=== PATIENT | male | born 1965 | race Caucasian/White ===

== ENCOUNTER 2016-07-18 03:08 | Emergency (ER) | payer BC ==
[2016-07-18] MEDS ORDERED: KETOROLAC 60 MG/2 ML VIAL IM STA (03:43)
[2016-07-18] MEDS ORDERED: DEXAMETHASONE 10 MG/ML VIAL PO STA (03:43)
[2016-07-18] MEDS ORDERED: DEXAMETHASONE 10 MG/ML VIAL ONE (03:48)
[2016-07-18] MEDS ORDERED: KETOROLAC 60 MG/2 ML VIAL ONE (03:49)
[2016-07-18] MEDS ORDERED: CHERRY SYRUP 10 ML UDC PO ONE (03:49)
[2016-07-18 04:34] VITALS: BP 122/80
--- NOTE | 2016-07-18 05:15 | ED Physician Documentation ---
PD HPI LOWER EXT INJURY - Stated complaint Stated Complaint: L KNEE PX - Chief complaint Chief Complaint: Ext Problem - History obtained from History obtained from: Patient - History of Present Illness PD HPI LOW EXT INJURY LOCATION: Left, Knee Where injury occurred: Home Timing - onset: How many weeks ago (6) Timing - details: Gradual onset, Still present Improved by: Rest Worsened by: Moving, Palpating Associated symptoms: Swelling. No: Numbness, Tingling Similar symptoms before: Has not had sx before Recently seen: Not recently seen - Additional information Additional information: Patient is a 51 year old male with no significant past medical history who is presenting to the emergency department for right knee pain. patient states that it has been going on for 5 weeks. it recently has been keeping him up at night so he came in for evaluation. Patient denies any trauma, discoloration or shortness of breath. Review of Systems Constitutional: denies: Fever, Chills Eyes: denies: Decreased vision Ears: denies: Ear pain, Drainage/discharge Nose: denies: Rhinorrhea / runny nose, Congestion Throat: denies: Dental pain / toothache, Oral lesions / sores, Sore throat Cardiac: denies: Chest pain / pressure, Pedal edema, Calf pain Respiratory: denies: Dyspnea, Cough GI: denies: Abdominal Pain, Nausea, Vomiting : denies: Dysuria, Frequency Skin: denies: Rash, Lesions Musculoskeletal: reports: Extremity pain, Joint pain, Extremity swelling, Joint swelling Neurologic: denies: Generalized weakness, Focal weakness, Numbness Immunocompromised: denies: Immunocompromised PD PAST MEDICAL HISTORY - Past Medical History Past Medical History: Yes Cardiovascular: Hypertension Respiratory: None Neuro: None Endocrine/Autoimmune: None GI: None : None HEENT: None Psych: ADD/ADHD Musculoskeletal: Chronic back pain Derm: None - Past Surgical History Past Surgical History: Yes Ortho: Other - Present Medications Home Medications: Ambulatory Orders Medication Instructions Recorded Confirmed Dextroamphetamine/Amphetamine 15 mg ORAL DAILY 12/12/13 07/18/16 [Adderall 15 mg Tablet] Tizanidine HCl [Zanaflex] 2 mg ORAL PRN PRN 12/12/13 07/18/16 HYDROcod/ACETAM 5/325 [[place] 5/325] 1 - 2 ea PO Q6H PRN #15 tablet 10/08/1509/26 Lisinopril/Hydrochlorothiazide 1 tab ORAL DAILY PM 10/08/15 07/18/16 [Lisinopril-Hctz 10-12.5 mg Tab] - Allergies Allergies/Adverse Reactions: Allergies Allergy/AdvReac Type Severity Reaction Status Date / Time Opioids - Morphine Analogues AdvReac Itching Verified 07/18/16 03:22 - Social History Does the pt smoke?: No Smoking Status: Never smoker Does the pt drink ETOH?: No Does the pt have substance abuse?: No - Immunizations Immunizations are current?: Yes - POLST Patient has POLST: No PD ED PE NORMAL - Vitals Vital signs reviewed: Yes - General General: Alert and oriented X 3, No acute distress, Well developed/nourished - HEENT HEENT: Atraumatic, PERRL, Pharynx benign - Neck Neck: Supple, no meningeal sign, No JVD - Cardiac Cardiac: RRR, No murmur - Respiratory Respiratory: No respiratory distress, Clear bilaterally - Abdomen Abdomen: Soft, Non tender, Non distended - Derm Derm: Normal color, Warm and dry, No rash - Neuro Neuro: Alert and oriented X 3, No motor deficit, No sensory deficit, Normal speech - Psych Psych: Normal mood, Normal affect PD ED PE EXPANDED - Extremities Extremities: Right knee (tenderness to palpation of medial right knee, no effusion, no warmth or erythema) Results - Vitals Vitals: Vital Signs - 24 hr 07/18/16 07/18/16 03:17 04:30 Temperature 36.2 C L Heart Rate 76 67 Respiratory 16 14 Rate Blood Pressure 117/78 122/80 O2 Saturation 99 98 Oxygen O2 Source Room air - Labs Labs: Laboratory Tests 07/18/16 04:29 D-Dimer < 200.0 L - Rads (name of study) left knee Radiology: Final report received (no acute fracture or dislocation, small effusion) PD MEDICAL DECISION MAKING - ED course Complexity details: reviewed old records, reviewed results, re-evaluated patient , considered differential, d/w patient ED course: Patient was seen and examined at bedside. patient was treated with toradol and decadron. d-dimer was collected. Patient had no unilateral swelling, edema, or history of clots. Patient was sent for imaging. When patient returned the results were reviewed. there was no acute fracture or dislocation and d-dimer was negative. Patient required no further inpatient work up and was stable for discharge with outpatient follow up. Departure - Departure Disposition: 01 Home, Self Care Clinical Impression: Left medial knee pain Condition: Good Instructions: Medial Collateral Ligament Probs Follow-Up: Jose Cao MD [Provider Admit Priv/Credential] - Within 1 week Comments: Your diagnostics today were within normal limits. there is no acute fracture or dislocation. the next step would be to follow up with your pmd or an orthopedist and possibly get an mri. In the meantime you can take motrin or tylenol as needed for pain, and you should ice your knee on a more regular basis. You can also do exercises to increase the strength in the leg muscles surrounding the knee. You can return to the emergency department at any time for new, worsening or uncontrollable symptoms.
--- NOTE | 2016-07-18 05:20 | XRAY Preliminary Report ---
Exam: XR Knee 3 View LT IMPRESSION: Small knee effusion without evident acute displaced fracture. [facility] SITE ID: [id number]
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
== END 2016-07-18 05:45 | disposition home or self-care (01) ==
LOC: ED 03:08
DX: M25.562 Pain in left knee (principal); I10 Essential (primary) hypertension
CPT/HCPCS: 36415; 73562; 85379; 96372; 99283; 99284; A9270

== ENCOUNTER 2017-02-04 09:48 | Emergency (ER) | payer MEDICARE, BC ==
[2017-02-04] MEDS ORDERED: KETOROLAC 60 MG/2 ML VIAL IM STA (10:30)
[2017-02-04] MEDS ORDERED: CYCLOBENZAPRINE 10 MG TABLET PO STA (10:31)
[2017-02-04 11:27] VITALS: BP 108/86
--- NOTE | 2017-02-04 11:51 | ED Physician Documentation ---
PD HPI BACK PAIN - Stated complaint Stated Complaint: BACK PX - Chief complaint Chief Complaint: Back Pain - History obtained from History obtained from: Patient, Family - History of Present Illness Timing - onset: How many days ago (3) Timing - details: Gradual onset, Still present Location: Lower, Right Quality: Pain, Spasm, Aching Worsened by: Movement, Twisting Similar symptoms before: Work up / diagnostics, Treatment Recently seen: Not recently seen - Additional information Additional information: Patient is a 51 year old male who is presenting to the emergency department for back pain. patient states that he has had back pain for a long time and it just got set off over the last couple of days. Patient reports that it normally gets better with massage but he has not had one done. Review of Systems Constitutional: denies: Fever, Chills Eyes: denies: Decreased vision Ears: denies: Ear pain, Drainage/discharge Nose: denies: Rhinorrhea / runny nose, Congestion Throat: reports: Reviewed and negative Cardiac: reports: Reviewed and negative Respiratory: reports: Reviewed and negative GI: reports: Reviewed and negative : denies: Dysuria, Frequency, Hematuria, Discharge Skin: denies: Rash, Lesions Musculoskeletal: reports: Back pain, Extremity pain Neurologic: denies: Generalized weakness, Focal weakness, Numbness Immunocompromised: denies: Immunocompromised PD PAST MEDICAL HISTORY - Past Medical History Past Medical History: Yes Cardiovascular: Hypertension Respiratory: None Neuro: None Endocrine/Autoimmune: None GI: None : None HEENT: None Psych: ADD/ADHD Musculoskeletal: Chronic back pain Derm: None - Past Surgical History Past Surgical History: Yes Ortho: Other - Present Medications Home Medications: Ambulatory Orders Medication Instructions Recorded Confirmed Dextroamphetamine/Amphetamine 15 mg ORAL DAILY 12/12/13 02/04/17 [Adderall 15 mg Tablet] Tizanidine HCl [Zanaflex] 2 mg ORAL PRN PRN 12/12/13 02/04/17 Lisinopril/Hydrochlorothiazide 1 tab ORAL DAILY PM 10/08/15 02/04/17 [Lisinopril-Hctz 10-12.5 mg Tab] Gabapentin 600 mg PO BID 02/04/17 02/04/17 Zolpidem Tartrate [Ambien Cr] 12.5 mg PO DAILY PM 02/04/17 02/04/17 diazePAM [Valium] 5 - 10 mg PO TID PRN #15 tablet 02/04/17 - Allergies Allergies/Adverse Reactions: Allergies Allergy/AdvReac Type Severity Reaction Status Date / Time Opioids - Morphine Analogues AdvReac Itching Verified 07/18/16 03:22 - Social History Does the pt smoke?: No Smoking Status: Never smoker Does the pt drink ETOH?: No Does the pt have substance abuse?: No - Immunizations Immunizations are current?: Yes - POLST Patient has POLST: No PD ED PE NORMAL - Vitals Vital signs reviewed: Yes - General General: Alert and oriented X 3, Well developed/nourished - HEENT HEENT: Atraumatic, PERRL, Pharynx benign - Neck Neck: Supple, no meningeal sign, No JVD - Cardiac Cardiac: RRR, No murmur - Respiratory Respiratory: No respiratory distress - Abdomen Abdomen: Soft, Non tender, Non distended - Derm Derm: Normal color, Warm and dry, No rash - Neuro Neuro: Alert and oriented X 3, No motor deficit, No sensory deficit, Normal speech - Psych Psych: Normal mood PD ED PE EXPANDED - General General: Alert, In Pain - Back Back: Soft tissue tenderness (soft tissue tenderness and hypertonicty of bilateral lumbar paraspinal muscles, worse on the right) Results - Vitals Vitals: Vital Signs - 24 hr 02/04/17 02/04/17 09:54 11:26 Temperature 36.6 C 36.8 C Heart Rate 67 54 L Respiratory 16 18 Rate Blood Pressure 160/96 H 108/86 H O2 Saturation 95 100 Oxygen O2 Source Room air PD MEDICAL DECISION MAKING - ED course Complexity details: reviewed old records, reviewed results, re-evaluated patient , considered differential, d/w patient ED course: Patient was seen and examined at bedside. osteopathic manipulation was performed on the patient's back. patient was treated with toradol and flexeril. A repeat course of manipulation was performed and patient had great response. Patient required no imaging or further work up at this time and was stable for discharge with outpatient follow up. Departure - Departure Disposition: 01 Home, Self Care Clinical Impression: Back pain Condition: Good Instructions: ED Chronic Pain Management Follow-Up: primary,care provider [Other] - As Needed Prescriptions: diazePAM [Valium] 5 - 10 mg PO TID PRN #15 tablet PRN Reason: Spasms Comments: Your symptoms today are being caused by muscle spasms. You should continue with motrin, tylenol heat pads, stretching valium and massage. You should follow up with your doctor for further evaluation, but may return to the emergency department at any time for new, worsening or uncontrollable symptoms. Discharge Date/Time: 02/04/17 12:04
== END 2017-02-04 12:04 | disposition home or self-care (01) ==
LOC: ED 09:48
DX: M54.5 Low back pain (principal); I10 Essential (primary) hypertension; M62.830 Muscle spasm of back
CPT/HCPCS: 96372; 99283; 99284; A9270

== ENCOUNTER 2018-10-24 10:09 | Emergency (ER) | payer BC, MEDICARE ==
--- NOTE | 2018-10-24 10:13 | ED Physician Documentation ---
PD HPI BACK PAIN - Stated complaint Stated Complaint: BACK PX - History obtained from History obtained from: Patient - History of Present Illness Timing - onset: How many days ago (2-3) Timing - details: Abrupt onset (He was laying on the ground working on something upside down and noted an onset of pain in his back as he started to twist out from underneath. He has been having pain in his lower back with spasms since then and those are worse today.) Location: Lower, Right Quality: Pain, Spasm Associated symptoms: Other (He feels pain radiating down the right leg to the inside arch of the foot but denies any weakness or numbness. He has not had any bowel or bladder discomfort.). No: Fever, Weakness, Numbness Improves with: No: Rest Worsened by: Movement, Twisting Contributing factors: Twisting. No: Lifting, Anticoagulated Similar symptoms before: Diagnosis (He has intermittent spasms of his low back similar to this. The last episode was a year and a half ago and lasted about a week and a half. He was able to have normal function of his back in the interval time. No chronic back pain.) Recently seen: Not recently seen Review of Systems Constitutional: denies: Fever, Chills, Myalgias Cardiac: denies: Chest pain / pressure, Palpitations, Pedal edema, Calf pain Respiratory: denies: Dyspnea, Cough GI: denies: Abdominal Pain, Nausea, Vomiting Skin: denies: Rash, Lesions Neurologic: denies: Focal weakness, Numbness, Near syncope PD PAST MEDICAL HISTORY - Past Medical History Cardiovascular: Hypertension Respiratory: None Endocrine/Autoimmune: None GI: None : None HEENT: None Psych: ADD/ADHD Musculoskeletal: Chronic back pain Derm: None - Past Surgical History Past Surgical History: Yes Ortho: Other - Present Medications Home Medications: Ambulatory Orders Medication Instructions Recorded Confirmed Dextroamphetamine/Amphetamine 15 mg ORAL DAILY 12/12/13 02/04/17 [Adderall 15 mg Tablet] RX: Tizanidine HCl [Zanaflex] 2 mg ORAL PRN PRN 12/12/13 02/04/17 Lisinopril/Hydrochlorothiazide 1 tab ORAL DAILY PM 10/08/15 02/04/17 [Lisinopril-Hctz 10-12.5 mg Tab] RX: Gabapentin 600 mg PO BID 02/04/17 02/04/17 Zolpidem Tartrate [Ambien Cr] 12.5 mg PO DAILY PM 02/04/17 02/04/17 diazePAM [Valium] 5 - 10 mg PO TID PRN #15 tablet 02/04/17 Oxycodone HCl/Acetaminophen 1 each PO Q6H PRN #20 tablet 10/24/18 [Endocet 7.5-325 mg Tablet] RX: diazePAM [Diazepam] 5 mg PO TID PRN #20 tablet 10/24/18 - Allergies Allergies/Adverse Reactions: Allergies Allergy/AdvReac Type Severity Reaction Status Date / Time Opioids - Morphine Analogues AdvReac Itching Verified 07/18/16 03:22 - Social History Does the pt smoke?: No Smoking Status: Never smoker Does the pt drink ETOH?: No Does the pt have substance abuse?: No - Immunizations Immunizations are current?: Yes - POLST Patient has POLST: No PD ED PE NORMAL - Vitals Vital signs reviewed: Yes - General General: Alert and oriented X 3, Well developed/nourished, Other (He appears uncomfortable and in spasms when he tries to twist or bend. He was uncomfortable getting into the gurney.) - Cardiac Cardiac: RRR, No murmur - Respiratory Respiratory: Clear bilaterally - Abdomen Abdomen: Soft, Non tender - Back Back: No CVA TTP, No spinal TTP (He is not tender in the spine itself but in the right paralumbar muscles and at the SI joint. There is a localized muscle spasm palpable. No rash or sores.) - Derm Derm: Normal color, Warm and dry, No rash - Extremities Extremities: No deformity, No edema, No calf tenderness / cord - Neuro Neuro: Alert and oriented X 3, No motor deficit, No sensory deficit, Normal speech, Other (Normal reflexes at the knees.) Results - Vitals Vitals: Vital Signs - 24 hr 10/24/18 10/24/18 10/24/18 10:15 10:24 10:50 Temperature 37.0 C Heart Rate 60 57 L 74 Respiratory 20 18 Rate Blood Pressure 133/76 H 126/85 H O2 Saturation 100 99 98 10/24/18 10/24/18 11:04 11:17 Temperature Heart Rate 64 67 Respiratory 16 16 Rate Blood Pressure 111/71 119/79 O2 Saturation 98 98 Oxygen O2 Source Room air PD MEDICAL DECISION MAKING - ED course Complexity details: considered differential (No red flags to suggest need for lab testing or imaging. We will treated as muscular pain with spasms. I did do a trigger point at the right paralumbar muscle near the top of the SI joint with lidocaine and Kenalog.), d/w patient Departure - Departure Disposition: 01 Home, Self Care Clinical Impression: Low back pain radiating to lower extremity Condition: Stable Record reviewed to determine appropriate education?: Yes Instructions: ED Spasm Back No Trauma Follow-Up: Taisha Arrington MD [Primary Care Provider] - Prescriptions: RX: diazePAM [Diazepam] 5 mg PO TID PRN #20 tablet PRN Reason: Spasms Oxycodone HCl/Acetaminophen [Endocet 7.5-325 mg Tablet] 1 each PO Q6H PRN #20 tablet PRN Reason: Pain Comments: Heat to the low back and gentle stretching. Use anti-inflammatories such as ibuprofen 600 800 mg 3 times a day with food. Diazepam muscle relaxant to help with spasms. Add Tylenol or oxycodone as needed for pain. Recheck if not improving well over the next few days. Discharge Date/Time: 10/24/18 11:21
[2018-10-24] MEDS ORDERED: diazePAM INJ 5 MG/ML SYRINGE IM STA (10:24)
[2018-10-24] MEDS ORDERED: TRIAMCINOLONE 40 MG/ML VIAL IM STA (10:24)
[2018-10-24] MEDS ORDERED: oxyCODONE 5 MG TABLET PO STA (10:24)
[2018-10-24] MEDS ORDERED: KETOROLAC 30 MG/ML VIAL IM STA (10:24)
[2018-10-24] MEDS ORDERED: ACETAMINOPHEN 500 MG TABLET PO STA (10:26)
[2018-10-24 11:18] VITALS: BP 119/79
== END 2018-10-24 11:21 | disposition home or self-care (01) ==
LOC: ED 10:09
DX: M54.5 Low back pain (principal); M62.830 Muscle spasm of back; M79.604 Pain in right leg; I10 Essential (primary) hypertension
CPT/HCPCS: 20552; 99283; 99284; A9270

== ENCOUNTER 2019-10-28 09:40 | Outpatient (CLI) | payer MEDICARE ==
--- NOTE | 2019-10-28 09:43 | XRAY Report ---
PROCEDURE: Foot 3 View RT INDICATIONS: RIGHT FOOT PAIN TECHNIQUE: 3 views of the foot were acquired. COMPARISON: No previous study is available for comparison. FINDINGS: Bones: No acute fractures or dislocations. No suspicious bony lesions. There is mild hallux valgus . 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 A small posterior calcaneal spur is present. Soft tissues: No tibiotalar joint effusion. Achilles tendon appears normal. IMPRESSION: No acute fracture or dislocation. Mild hallux valgus. Reviewed by: Usman Colindres MD on 10/28/2019 9:42 AM PDT Approved by: Usman Colindres MD on 10/28/2019 9:42 AM PDT Station ID: [id number]
== END 2019-10-28 23:59 | disposition home or self-care (01) ==
LOC: DI.WCP 09:40
PROVIDERS: ATTEND Physician Assistant
DX: M79.674 Pain in right toe(s) (principal); M20.11 Hallux valgus (acquired), right foot

== ENCOUNTER 2020-08-03 12:25 | Emergency (ER) | payer MEDICARE ==
[2020-08-03 12:33] VITALS: BP 123/77
--- NOTE | 2020-08-03 14:47 | ED Physician Documentation ---
PD HPI UPPER EXT INJURY - Stated complaint Stated Complaint: R HAND INJURY - Chief complaint Chief Complaint: Laceration - History obtained from History obtained from: Patient - History of Present Illness Location: Right, Hand (hypothenar area) Type of injury: Laceration (accidentallly with knife edge as he was trying to remove splinter) Where injury occurred: Home Timing - onset: Today Timing - details: Abrupt onset, Still present (still bleeding without direct pressure.) Worsened by: Moving, Palpating Associated symptoms: No: Weakness, Numbness Similar symptoms before: Has not had sx before Review of Systems Skin: reports: Laceration (s) Neurologic: denies: Focal weakness, Numbness PD PAST MEDICAL HISTORY - Past Medical History Cardiovascular: Hypertension Respiratory: None Endocrine/Autoimmune: None GI: None : None HEENT: None Psych: ADD/ADHD Musculoskeletal: Chronic back pain Derm: None - Past Surgical History Past Surgical History: Yes Ortho: Other - Present Medications Home Medications: Ambulatory Orders Medication Instructions Recorded Confirmed Dextroamphetamine/Amphetamine 15 mg ORAL DAILY 12/12/13 02/04/17 [Adderall 15 mg Tablet] Tizanidine HCl [Zanaflex] 2 mg ORAL PRN PRN 12/12/13 02/04/17 Lisinopril/Hydrochlorothiazide 1 tab ORAL DAILY PM 10/08/15 02/04/17 [Lisinopril-Hctz 10-12.5 mg Tab] Gabapentin 600 mg PO BID 02/04/17 02/04/17 Zolpidem Tartrate [Ambien Cr] 12.5 mg PO DAILY PM 02/04/17 02/04/17 diazePAM [Valium] 5 - 10 mg PO TID PRN #15 tablet 02/04/17 Oxycodone HCl/Acetaminophen 1 each PO Q6H PRN #20 tablet 10/24/18 [Endocet 7.5-325 mg Tablet] diazePAM [Diazepam] 5 mg PO TID PRN #20 tablet 10/24/18 - Allergies Allergies/Adverse Reactions: Allergies Allergy/AdvReac Type Severity Reaction Status Date / Time Opioids - Morphine Analogues AdvReac Itching Verified 08/03/20 12:29 - Social History Does the pt smoke?: No Smoking Status: Never smoker Does the pt drink ETOH?: No Does the pt have substance abuse?: No - Immunizations Immunizations are current?: Yes - POLST Patient has POLST: No PD ED PE NORMAL - Vitals Vital signs reviewed: Yes - General General: Alert and oriented X 3, No acute distress, Well developed/nourished - Derm Derm: Normal color, Warm and dry - Extremities Extremities: Other (hypothenar area with 1.5 cm laceration to fatty tissue. Mild bleeding. No FB. ) - Neuro Neuro: No motor deficit, No sensory deficit Results - Vitals Vitals: Vital Signs - 24 hr 08/03/20 12:29 Temperature 36.5 C Heart Rate 86 Respiratory 16 Rate Blood Pressure 123/77 O2 Saturation 96 Oxygen O2 Source Room air Procedures - Laceration (location) left hand Length in cm: 1.5 Wound type: Linear Neurovascular status: Sensory intact, Motor intact, Vascular intact Tendon involvement: No: Tendon Injury Anesthesia: Lidocaine 1% with epi Wound preparation: Wound explored, To the base. No: FB identified Skin layer closure: Interrupted, Size #-0 - enter number (4), Sutures - enter # (5) Other: Patient tolerated well, No complications, Neurovascular intact, Dressing applied, Tetanus UTD PD MEDICAL DECISION MAKING - ED course Complexity details: considered differential, d/w patient Departure - Departure Disposition: 01 Home, Self Care Clinical Impression: Hand laceration Qualifiers: Encounter type: initial encounter Foreign body presence: without foreign body Laterality: right Qualified Code(s): S61.411A - Laceration without foreign body of right hand, initial encounter Condition: Stable Record reviewed to determine appropriate education?: Yes Instructions: ED Laceration Hand Follow-Up: Taisha Arrington MD [Primary Care Provider] - Comments: It is okay to wash and shower. Clean off the wound twice a day with soap and water, or peroxide and water. Apply some antibiotic ointment to it to keep it moist. Also to watch for signs of infection such as purulence, redness or increasing pain. Return to your primary care or the ER at the specified time for suture removal. Suture removal 9 to 10 days. Tylenol or ibuprofen as needed for pains. Discharge Date/Time: 08/03/20 15:18
== END 2020-08-03 15:18 | disposition home or self-care (01) ==
LOC: ED 12:25
DX: S61.411A Laceration without foreign body of right hand, initial encounter (principal); W26.0XXA Contact with knife, initial encounter; Y93.89 Activity, other specified; Y92.009 Unspecified place in unspecified non-institutional (private) residence as the place of occurrence of the external cause; I10 Essential (primary) hypertension
CPT/HCPCS: 12001; 99281; 99282

== ENCOUNTER 2021-06-04 12:49 | Emergency (ER) | payer MEDICARE ==
[2021-06-04 13:03] VITALS: BP 136/84
[2021-06-04] MEDS ORDERED: lidocaine 1% 20 ML MDV SUBQ ONE (13:32)
--- NOTE | 2021-06-04 14:11 | ED Physician Documentation ---
PD HPI UPPER EXT INJURY - Stated complaint Stated Complaint: LT ARM INJ - Chief complaint Chief Complaint: Laceration - History obtained from History obtained from: Patient, Family - History of Present Illness Location: Left, Forearm Type of injury: Laceration Where injury occurred: Home Timing - onset: Today Timing - duration: Hours Timing - details: Abrupt onset, Still present Improved by: Rest, Immobilization Worsened by: Moving, Palpating Associated symptoms: Other (5th digit "curled" initially). No: Weakness, Numbness, Tingling, Swelling, Discolored Contributing factors: No: Anticoagulated Similar symptoms before: Diagnosis (laceraation) Recently seen: Not recently seen - Additonal information Additional information: Previously well 56-year-old male was outside using a knife to cut branches when he slipped and lacerated his volar forearm on the left side. He initially had some curling of the left fifth digit which now appears to be working normally. Denies any numbness. Feels that he is up-to-date on his tetanus. Review of Systems Constitutional: denies: Fever Respiratory: denies: Cough GI: denies: Vomiting, Diarrhea Skin: reports: Laceration (s) Musculoskeletal: reports: Extremity pain PD PAST MEDICAL HISTORY - Past Medical History Cardiovascular: Hypertension Respiratory: None Endocrine/Autoimmune: None GI: None : None HEENT: None Psych: ADD/ADHD Musculoskeletal: Chronic back pain Derm: None - Past Surgical History Past Surgical History: Yes Ortho: Other - Present Medications Home Medications: Ambulatory Orders Medication Instructions Recorded Confirmed Dextroamphetamine/Amphetamine 15 mg ORAL DAILY 12/12/13 02/04/17 [Adderall 15 mg Tablet] Tizanidine HCl [Zanaflex] 2 mg ORAL PRN PRN 12/12/13 02/04/17 Lisinopril/Hydrochlorothiazide 1 tab ORAL DAILY PM 10/08/15 02/04/17 [Lisinopril-Hctz 10-12.5 mg Tab] Gabapentin 600 mg PO BID 02/04/17 02/04/17 Zolpidem Tartrate [Ambien Cr] 12.5 mg PO DAILY PM 02/04/17 02/04/17 diazePAM [Valium] 5 - 10 mg PO TID PRN #15 tablet 02/04/17 Oxycodone HCl/Acetaminophen 1 each PO Q6H PRN #20 tablet 10/24/18 [Endocet 7.5-325 mg Tablet] diazePAM [Diazepam] 5 mg PO TID PRN #20 tablet 10/24/18 - Allergies Allergies/Adverse Reactions: Allergies Allergy/AdvReac Type Severity Reaction Status Date / Time Opioids - Morphine Analogues AdvReac Itching Verified 06/04/21 13:01 - Social History Does the pt smoke?: No Smoking Status: Never smoker Does the pt drink ETOH?: No Does the pt have substance abuse?: No - Immunizations Immunizations are current?: Yes - POLST Patient has POLST: No PD ED PE NORMAL - Vitals Vital signs reviewed: Yes (Hypertensive mild) - General General: Alert and oriented X 3, No acute distress, Well developed/nourished - HEENT HEENT: Atraumatic, PERRL, EOMI - Respiratory Respiratory: No respiratory distress - Derm Derm: Normal color, Warm and dry, No rash - Extremities Extremities: No deformity, No edema, Other (There is a 5 and half centimeter laceration to the volar surface of the left forearm there is some penetration of the fascia into a muscle belly there is no visible tendon injury. 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, No motor deficit, No sensory deficit, Normal speech Eye Opening: Spontaneous Motor: Obeys Commands Verbal: Oriented GCS Score: 15 - Psych Psych: Normal mood, Normal affect Results - Vitals Vitals: Vital Signs - 24 hr 06/04/21 12:59 Temperature 36.2 C L Heart Rate 71 Respiratory 16 Rate Blood Pressure 136/84 H O2 Saturation 97 Oxygen O2 Source Room air Procedures - Laceration (location) left forearm Length in cm: 5.5 Wound type: Linear, Into muscle, Clean Neurovascular status: Sensory intact, Motor intact, Vascular intact Anesthesia: Lidocaine 1% Wound preparation: Hibiclens, Irrigated copiously NS, Wound explored, To the base Skin layer closure: Nylon, Interrupted, Size #-0 - enter number (4-0) Other: Patient tolerated well, No complications, Neurovascular intact, Dressing applied, Tetanus UTD PD MEDICAL DECISION MAKING - ED course Complexity details: reviewed old records, considered differential, d/w patient, d/w family ED course: 56-year-old male with a laceration to his left forearm is repair made tolerates this well is up-to-date on tetanus. Departure - Departure Disposition: 01 Home, Self Care Clinical Impression: Forearm laceration Qualifiers: Encounter type: initial encounter Laterality: left Qualified Code(s): S51.812A - Laceration without foreign body of left forearm, initial encounter Condition: Stable Instructions: ED Laceration Ext Sutr Stap Tape Follow-Up: Taisha Arrington MD [Primary Care Provider] - Comments: Pasha today it looks like you have had a laceration to your forearm that extends down into the muscle. I do not see any involvement of the tendon. The recommendation is to reduce the use of your forearm for up to 2 weeks. You may still use your arm. Sutures will be need to be removed in 7 to 10 days
== END 2021-06-04 14:24 | disposition home or self-care (01) ==
LOC: ED 12:49
DX: S51.812A Laceration without foreign body of left forearm, initial encounter (principal); W26.0XXA Contact with knife, initial encounter; Y93.H2 Activity, gardening and landscaping; Y92.007 Garden or yard of unspecified non-institutional (private) residence as the place of occurrence of the external cause; I10 Essential (primary) hypertension
CPT/HCPCS: 12032

== ENCOUNTER 2022-10-18 16:12 | Outpatient (CLI) | payer MEDICARE ==
--- NOTE | 2022-10-18 23:42 | XRAY Report ---
PROCEDURE: Cervical Spine Complete INDICATIONS: OTHER CERVICAL DISC DISPLACEMENT, UNSP CERVICAL RE TECHNIQUE: 4 views of the cervical spine acquired. COMPARISON: None. FINDINGS: Bones: No fractures to the T1 level. Trace anterolisthesis C3 on 4. Mild disc height loss at C5-6 an d moderate disc height loss and trace retrolisthesis C6-7. Mild anterior and posterior endplate spurs from C4 through C7. There is appropriate range of motion in flexion and extension with reduction of the trace retrolisthe sis at C6-7 level in flexion, and slight reduction of the retrolisthesis at C3-4 level in extension. There is facet hypertrophy and sclerosis. Soft tissues: No prevertebral soft tissue swelling. IMPRESSION: 1. Mild spondylosis and spondylolisthesis as described above. 2. Normal range of motion with minor dynamic instability at level of trace spondylolisthesis as descr ibed above. Reviewed by: Yoselin Jacobs MD on 10/18/2022 11:40 PM PDT Approved by: Yoselin Jacobs MD on 10/18/2022 11:40 PM PDT Station ID: [id number]
== END 2022-10-18 16:13 | disposition home or self-care (01) ==
LOC: DI 16:12
PROVIDERS: ATTEND Neurological Surgery
DX: M50.20 Other cervical disc displacement, unspecified cervical region (principal); M47.812 Spondylosis without myelopathy or radiculopathy, cervical region; M43.12 Spondylolisthesis, cervical region

== ENCOUNTER 2023-08-02 08:23 | Outpatient (CLI) | payer MEDICARE ==
--- NOTE | 2023-08-04 16:30 | MRI Report ---
PROCEDURE: Lumbar Spine WO INDICATIONS: LUMBAR RADICULOPATHY TECHNIQUE: Multiplanar multisequential MRI images of the lumbar spine were obtained without intraven ous contrast. COMPARISON: None. FINDINGS: Alignment and Curvature: There is normal bony alignment. Bone Marrow: L3-4 degenerative endplate changes. Left hemilaminectomy Spinal Cord: Conus medullaris terminates at the L1 level. Visualized cord demonstrates normal signa l and size. Paraspinal Soft Tissues: Unremarkable perivertebral soft tissues. T12-L1: Normal in appearance. L1-L2: Normal in appearance. L2-L3: Disc space narrowing disc bulge. Mild central stenosis. Mild bilateral foraminal stenosis L3-L4: Disc space narrowing and posterior disc bulge with hypertrophic facet joints at. The left he milaminectomy. No central stenosis. Severe left and moderate right foraminal stenosis L4-L5: Disc space narrowing and posterior disc bulge present. No central stenosis. Left hemilaminec negar. Severe left and severe right foraminal stenosis L5-S1: Disc spaces preserved. Mild disc bulge. No central stenosis. Mild bilateral foraminal stenos is IMPRESSION: Multilevel degenerative disc disease and arthropathy results in varying degrees of central and forami nal stenosis including severe foraminal stenosis L3-4 and L4-5. Left hemilaminectomy at L3-4 L4-5 without instrumentation Reviewed by: Tim White MD on 08/04/2023 3:29 PM GEOVANNA Approved by: Tim White MD on 08/04/2023 3:29 PM [place] Station ID: [id number]
== END 2023-08-02 08:24 | disposition home or self-care (01) ==
LOC: DI 08:23
PROVIDERS: ATTEND Registered Nurse
DX: M51.36 Other intervertebral disc degeneration, lumbar region (principal); M48.061 Spinal stenosis, lumbar region without neurogenic claudication; M47.816 Spondylosis without myelopathy or radiculopathy, lumbar region; M51.37 Other intervertebral disc degeneration, lumbosacral region; M48.07 Spinal stenosis, lumbosacral region